=== PATIENT | male | born 1970 | race Caucasian/White ===

== ENCOUNTER 2025-03-22 15:14 | Outpatient (CLI) | payer BC | END 2025-03-22 15:15 | disposition home or self-care (01) | LOC: CSHULT 15:14 | PROVIDERS: ATTEND Family Medicine | DX: E04.1 Nontoxic single thyroid nodule (principal) | CPT/HCPCS: 76536 ==

== ENCOUNTER → 2025-04-30 | Day surgery (SDC) | payer BC ==
[~2025-04-30] MED LIST: Sodium Bicarbonate 2.5 MEQ/5 ML SDV ONE
== END ==
LOC: CSHULT 08:32
PROVIDERS: ATTEND Otolaryngology Plastic Surgery within the Head & Neck
PROC: 0GBG3ZX Excision of Left Thyroid Gland Lobe, Percutaneous Approach, Diagnostic (ICD-10-PCS; principal; 2025-04-30)
DX: E04.1 Nontoxic single thyroid nodule (principal)
CPT/HCPCS: 10005; 88173